=== PATIENT | male | born 1960 | race Asian ===

== ENCOUNTER 2017-07-14 07:22 | Emergency (ER) | payer OTHER, MEDICAID ==
[~2017-07-14] VITALS: Ht 121.9 cm; Wt 31.8 kg
[2017-07-14 07:25] VITALS: BP 163/88
[2017-07-14 10:54] VITALS: BP 114/69
== END 2017-07-14 10:54 | disposition home or self-care (01) ==
LOC: MED 07:22
DX: S01.01XA Laceration without foreign body of scalp, initial encounter (principal); W18.2XXA Fall in (into) shower or empty bathtub, initial encounter; Y93.F1 Activity, caregiving, bathing; Y92.091 Bathroom in other non-institutional residence as the place of occurrence of the external cause; Y99.8 Other external cause status

== ENCOUNTER 2019-07-08 14:56 | Emergency (ER) | payer OTHER, MEDICAID ==
[~2019-07-08] VITALS: Ht 274.3 cm; Wt 34.0 kg
[2019-07-08 15:00] VITALS: BP 143/76
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
[2019-07-08] MEDS ORDERED: ONDANSETRON 4 MG ODT PO ONE (15:40)
[2019-07-08] MEDS ORDERED: MORPHINE SULFATE 4 MG/ML SYR IM ONE (15:40)
[2019-07-08] MEDS ORDERED: ceFAZolin 1,000 MG VIAL ONE (16:40)
--- NOTE | 2019-07-08 16:45 | NUR ---
APPROX 0.5CM LACERATION NOTED ON R UPPER ARM, BLEEDING CONTROLLED WITH XEROFORM GAUZE AND NONADHERENT DRESSING. R POSTERIOR LONGARM SPLINT PLACED BY EMT, +2 RADIAL PULSE, <3S CAP REFILL.
[2019-07-08 16:50] LABS: BASOPHILS # (AUTO) 0.1 K/uL (0.00-0.22); BASOPHILS % (AUTO) 0.5 % (0.0-2.0); HEMATOCRIT 42.2 % (36-52); HEMOGLOBIN 14.2 g/dL (12.0-18.0); LYMPHOCYTES # (AUTO) 0.5 K/uL (2.0-11.5); LYMPHOCYTES % (AUTO) 2.4 % (20.5-51.1); MEAN CORPUSCULAR HEMOGLOBIN 30 pg (27-31); MEAN CORPUSCULAR HGB CONC 34 g/dL (33-37); MEAN CORPUSCULAR VOLUME 89.4 fL (80-94); MONOCYTES # (AUTO) 1.5 K/uL (0.8-1.0); MONOCYTES % (AUTO) 7.8 % (1.7-9.3); NEUTROPHILS # (AUTO) 17.2 K/uL (1.8-7.7); NEUTROPHILS % (AUTO) 89.3 % (42.2-75.2); PLATELET COUNT (AUTO) 236 K/uL (140-450); RED BLOOD CELL COUNT(AUTO) 4.72 MIL/uL (4.20-6.10); RED CELL DISTRIBUTION WIDTH 13.6 % (11.6-13.7); WHITE BLOOD COUNT (AUTO) 19.2 K/uL (4.8-10.8)
[2019-07-08 18:11] LABS: ALBUMIN 3.7 g/dL (3.4-5.0); ANION GAP 14.4 (8-16); CARBON DIOXIDE 26.6 mmol/L (21-32); CREATININE 1.4 mg/dL (0.7-1.3); TOTAL BILIRUBIN 0.4 mg/dL (0.0-1.0)
--- NOTE | 2019-07-08 18:16 | NUR ---
PT LAYING IN BED, CAREGIVER AT BEDSIDE, VSS, RR EVEN AND UNLABORED. ALL NEEDS MET.
--- NOTE | 2019-07-08 18:29 | NUR ---
Patient to be transferred to [facility], room 497A. Is being transferred due to higher level of care. Receiving facility has accepting physician and available space. ER physician has signed transfer form. Patient or responsible green party has agreed to transfer and signed form. Patient belongings inventoried and will be sent with patient. Copy of nursing notes, lab reports, EKG, Physicians Orders and X-rays to be sent with patient. Report called to Anisa PRESCOTT at receiving facility. [facility] ambulance service has been called for transfer. ETA is 1845.
[2019-07-08 18:55] VITALS: BP 132/71
--- NOTE | 2019-07-08 18:55 | NUR ---
[facility] TRANSPORT AT BEDSIDE. PT TO BE TRANSFERRED TO [facility] ROOM 497A. CONDITION STABLE, RR EVEN AND UNLABORED.
== END 2019-07-08 18:55 | disposition short-term general hospital (02) ==
LOC: MED 14:56
DX: S42.401B Unspecified fracture of lower end of right humerus, initial encounter for open fracture (principal); G93.89 Other specified disorders of brain; W23.0XXA Caught, crushed, jammed, or pinched between moving objects, initial encounter; Y93.89 Activity, other specified; Y92.811 Bus as the place of occurrence of the external cause; Y99.8 Other external cause status
CPT/HCPCS: 29105; 36415; 70450; 73060; 73080; 73090; 80053; 85025; 96365; 96366; 96372; 99285; J0690; J2270; Q0092; Q0162

== ENCOUNTER 2020-07-02 17:17 | Inpatient (IN) | payer OTHER, MEDICAID, SELFPAY ==
[~2020-07-02] VITALS: Ht 132.1 cm; Wt 36.3 kg
[2020-07-02 17:17] VITALS: BP 58/32
[2020-07-02] MEDS ORDERED: NACL 0.9% 1,000 ML IV ONE ×2 (17:42→19:45)
[2020-07-02] MEDS ORDERED: MAGN400S60 GT (18:00)
[2020-07-02] MEDS ORDERED: OMEP20CA19 GT (18:00)
[2020-07-02] MEDS ORDERED: ACET-2619 GT (18:00)
[2020-07-02] MEDS ORDERED: SIMV40TA1 PO (18:00)
[2020-07-02] MEDS ORDERED: FLONAS NS (18:00)
[2020-07-02] MEDS ORDERED: ROB GT (18:00)
[2020-07-02] MEDS ORDERED: DIPH25TA53 GT (18:00)
[2020-07-02] MEDS ORDERED: TAMS0.4C96 GT (18:00)
[2020-07-02] MEDS ORDERED: MULT-2112 GT (18:00)
[2020-07-02 19:15] LABS: APPEARANCE,URINE CLEAR (CLEAR); BILIRUBIN,URINE NEGATIVE (NEGATIVE); BLOOD, URINE NEGATIVE (NEGATIVE); COLOR,URINE YELLOW (YELLOW); LEUKOCYTE ESTERASE ,URINE TRACE (NEGATIVE); NITRITE, URINE NEGATIVE (NEGATIVE); UGLUCOSE NEGATIVE (NEGATIVE)
[2020-07-02 19:23] LABS: PROTHROMBIN TIME 15.5 secs (10.8-13.4)
[2020-07-02 19:28] LABS: RBC,URINE 0-5 /HPF (0-5)
[2020-07-02 19:37] LABS: ALBUMIN 1.6 g/dL (3.4-5.0); ANION GAP 20.1 (8-16); CARBON DIOXIDE 16.2 mmol/L (21-32); CREATININE 2.1 mg/dL (0.6-1.3); POTASSIUM 4.3 mmol/L (3.5-5.1); TOTAL BILIRUBIN 0.1 mg/dL (0.0-1.0)
[2020-07-02] MEDS ORDERED: cefTRIAXone 1,000 MG VIAL ONE (19:49)
[2020-07-02] MEDS ORDERED: ASPIRIN 325 MG TAB GT ONE (19:50)
[2020-07-02 19:58] LABS: MEAN CORPUSCULAR HGB CONC 29 g/dL (33-37)
[2020-07-02 20:03] LABS: MEAN CORPUSCULAR HEMOGLOBIN 24 pg (27-31); MEAN CORPUSCULAR VOLUME 83.3 fL (80-94); PLATELET COUNT (AUTO) 233 K/uL (140-450); RED CELL DISTRIBUTION WIDTH 17.2 % (11.6-13.7)
[2020-07-02 20:08] LABS: HEMOGLOBIN 4.6 g/dL (12.0-18.0); WHITE BLOOD COUNT (AUTO) 28.9 K/uL (4.8-10.8)
[2020-07-02 20:09] LABS: HEMATOCRIT 15.8 % (36-52)
[2020-07-02 20:36] LABS: LYMPHOCYTES % (MANUAL) 5 % (20-46)
[2020-07-02] MEDS ORDERED: POTASSIUM CHLORIDE 10 MEQ TABER PO PRN (21:05)
[2020-07-02] MEDS ORDERED: DOCUSATE SODIUM 100 MG GELCAP PO PRN (21:05)
[2020-07-02] MEDS ORDERED: ACETAMINOPHEN 325 MG TAB PO PRN (21:05)
[2020-07-02] MEDS ORDERED: HYDROcodone/APAP 7.5/325 MG 1 TAB PO PRN (21:05)
[2020-07-02] MEDS ORDERED: ONDANSETRON 4 MG/2 ML VIAL IM/IVP PRN (21:05)
[2020-07-02 22:02] LABS: CHOL/HDL RATIO 2.9 (1-4.5); FREE T4 (FREE THYROXINE) 1.02 ng/dL (0.76-1.46); MAGNESIUM 2.3 mg/dL (1.8-2.4); PHOSPHORUS 2.4 mg/dL (2.5-4.9); THYROID STIMULATING HORMONE 0.42 uIU/mL (0.34-3.74)
[2020-07-03 00:55] VITALS: BP 96/53
[2020-07-03 04:00] VITALS: BP 124/76
[2020-07-03] MEDS: NACL 0.9% 1,000 ML IV SCH ×2 (04:34→06:00)
[2020-07-03] MEDS ORDERED: PANTOPRAZOLE 40 MG INJ VIAL ONE (04:55)
[2020-07-03] MEDS: PANTOPRAZOLE 80 MG in NACL 0.9% 100 ML IV SCH ×3 (05:07→17:49)
[2020-07-03 06:53] LABS: HEMATOCRIT 34.7 % (36-52); HEMOGLOBIN 11.4 g/dL (12.0-18.0); MEAN CORPUSCULAR HEMOGLOBIN 28 pg (27-31); MEAN CORPUSCULAR HGB CONC 33 g/dL (33-37); MEAN CORPUSCULAR VOLUME 85.7 fL (80-94); PLATELET COUNT (AUTO) 142 K/uL (140-450); RED BLOOD CELL COUNT(AUTO) 4.05 MIL/uL (4.20-6.10); RED CELL DISTRIBUTION WIDTH 17.7 % (11.6-13.7)
[2020-07-03 06:59] LABS: ANION GAP 17.3 (8-16); CARBON DIOXIDE 18.4 mmol/L (21-32); CREATININE 1.9 mg/dL (0.6-1.3); POTASSIUM 4.7 mmol/L (3.5-5.1)
[2020-07-03 07:04] LABS: MAGNESIUM 2.2 mg/dL (1.8-2.4); PHOSPHORUS 2.3 mg/dL (2.5-4.9)
[2020-07-03 08:00] VITALS: BP 131/80
[2020-07-03 08:00] LABS: WHITE BLOOD COUNT (AUTO) 25.4 K/uL (4.8-10.8)
[2020-07-03 08:01] LABS: LYMPHOCYTES % (MANUAL) 4 % (20-46); MONOCYTES % (MANUAL) 13 % (5-12)
[2020-07-03 12:00] VITALS: BP 131/77
[2020-07-03] MEDS ORDERED: MAGNESIUM CITRATE 300 ML BTL PO ONE (12:45)
[2020-07-03] MEDS ORDERED: BOWEL EVACUANT DRINK 4,000 ML PDS PO SCH (13:11)
[2020-07-03] MEDS ORDERED: POTASSIUM CHLORIDE 10 MEQ TABER PO PRN (13:14)
[2020-07-03 13:16] LABS: BASOPHILS # (AUTO) 0.1 K/uL (0.00-0.22); BASOPHILS % (AUTO) 0.4 % (0.0-2.0); EOSINOPHILS # (AUTO) 0.1 K/uL (0-0.4); EOSINOPHILS % (AUTO) 0.5 % (0.0-4.0); HEMATOCRIT 32.8 % (36-52); HEMOGLOBIN 10.6 g/dL (12.0-18.0); LYMPHOCYTES # (AUTO) 1.3 K/uL (2.0-11.5); LYMPHOCYTES % (AUTO) 5.3 % (20.5-51.1); MEAN CORPUSCULAR HEMOGLOBIN 29 pg (27-31); MEAN CORPUSCULAR HGB CONC 32 g/dL (33-37); MEAN CORPUSCULAR VOLUME 87.9 fL (80-94); MONOCYTES # (AUTO) 2.8 K/uL (0.8-1.0); MONOCYTES % (AUTO) 11.2 % (1.7-9.3); NEUTROPHILS # (AUTO) 20.8 K/uL (1.8-7.7); NEUTROPHILS % (AUTO) 82.6 % (42.2-75.2); PLATELET COUNT (AUTO) 78 K/uL (140-450); RED BLOOD CELL COUNT(AUTO) 3.73 MIL/uL (4.20-6.10); RED CELL DISTRIBUTION WIDTH 17.5 % (11.6-13.7)
[2020-07-03 13:25] LABS: WHITE BLOOD COUNT (AUTO) 25.2 K/uL (4.8-10.8)
[2020-07-03] MEDS: SENNA 8.6 MG TAB PO SCH ×3 (14:53→20:51)
[2020-07-03] MEDS: LACTULOSE 20 GM/30 ML UDC PO SCH ×3 (14:53→20:50)
[2020-07-03 16:00] VITALS: BP 120/72
[2020-07-03] MEDS ORDERED: MAGNESIUM CITRATE 300 ML BTL PO SCH (17:07)
[2020-07-03] MEDS: POTASSIUM CHL 10 MEQ/D5-1/2NS 1,000 ML IV SCH ×2 (17:33→22:27)
[2020-07-03] MEDS: METOCLOPRAMIDE 10 MG/2 ML INJ VIAL IVP SCH (17:58)
[2020-07-03] MEDS: PIPERACILLIN/TAZOBACTAM 2.25 GM in DEXTROSE 5% 50 ML IV SCH ×2 (18:58→23:39)
[2020-07-03 20:00] VITALS: BP 138/76
[2020-07-04] VITALS: BP 127/77
[2020-07-04] MEDS: METOCLOPRAMIDE 10 MG/2 ML INJ VIAL IVP SCH ×3 (00:01→11:45)
[2020-07-04] MEDS ORDERED: PANTOPRAZOLE 40 MG INJ VIAL ONE (03:54)
[2020-07-04 04:00] VITALS: BP 145/83
[2020-07-04] MEDS: PANTOPRAZOLE 80 MG in NACL 0.9% 100 ML IV SCH (04:04)
[2020-07-04] MEDS: POTASSIUM CHL 10 MEQ/D5-1/2NS 1,000 ML IV SCH (04:49)
[2020-07-04] MEDS: PIPERACILLIN/TAZOBACTAM 2.25 GM in DEXTROSE 5% 50 ML IV SCH ×3 (05:20→18:00)
[2020-07-04 07:28] LABS: BASOPHILS % (AUTO) 0.1 % (0.0-2.0); HEMATOCRIT 23.5 % (36-52); HEMOGLOBIN 7.6 g/dL (12.0-18.0); LYMPHOCYTES % (AUTO) 4.9 % (20.5-51.1); MEAN CORPUSCULAR HEMOGLOBIN 28 pg (27-31); MEAN CORPUSCULAR HGB CONC 32 g/dL (33-37); MEAN CORPUSCULAR VOLUME 87.2 fL (80-94); MONOCYTES # (AUTO) 2.2 K/uL (0.8-1.0); MONOCYTES % (AUTO) 11.1 % (1.7-9.3); NEUTROPHILS # (AUTO) 16.9 K/uL (1.8-7.7); NEUTROPHILS % (AUTO) 83.9 % (42.2-75.2); PLATELET COUNT (AUTO) 93 K/uL (140-450); RED BLOOD CELL COUNT(AUTO) 2.69 MIL/uL (4.20-6.10); RED CELL DISTRIBUTION WIDTH 17.4 % (11.6-13.7); WHITE BLOOD COUNT (AUTO) 20.1 K/uL (4.8-10.8)
[2020-07-04 07:32] LABS: ANION GAP 18.5 (8-16); CARBON DIOXIDE 17.6 mmol/L (21-32); POTASSIUM 3.1 mmol/L (3.5-5.1)
[2020-07-04 07:33] LABS: MAGNESIUM 2.8 mg/dL (1.8-2.4); PHOSPHORUS 3.1 mg/dL (2.5-4.9)
[2020-07-04 08:00] VITALS: BP 135/48
[2020-07-04] MEDS ORDERED: MAGNESIUM CITRATE 300 ML BTL PO SCH (08:00)
[2020-07-04] MEDS ORDERED: BOWEL EVACUANT DRINK 4,000 ML PDS PO SCH (08:00)
[2020-07-04] MEDS: SENNA 8.6 MG TAB PO SCH (08:21)
[2020-07-04] MEDS: LACTULOSE 20 GM/30 ML UDC PO SCH (08:21)
[2020-07-04 09:06] LABS: FOLIC ACID 14.9 ng/mL (>3.0); T4 (THYROXINE) 4.8 ug/dL (4.5-12.0)
[2020-07-04 12:00] VITALS: BP 137/72
[2020-07-04] MEDS ORDERED: POTASSIUM CHLORIDE 20% 40 MEQ/15 ML UDC GT SCH (13:00)
[2020-07-04] MEDS: POTASSIUM CHL 20 MEQ / DEXT 5% 1,000 ML IV SCH ×2 (13:03→22:45)
[2020-07-04] MEDS ORDERED: MIDAZOLAM 2 MG/2 ML VIAL ONE (14:30)
[2020-07-04] MEDS ORDERED: fentaNYL citrate 0.05 MG/ML VIAL ONE (14:30)
[2020-07-04 16:00] VITALS: BP 133/69
[2020-07-04] MEDS ORDERED: MIDAZOLAM 2 MG/2 ML VIAL IVP ONE ×2 (18:25→18:30)
[2020-07-04] MEDS ORDERED: fentaNYL citrate 0.05 MG/ML VIAL IVP ONE ×2 (18:25→18:30)
[2020-07-04 20:00] VITALS: BP 126/57
[2020-07-04] MEDS: FERROUS SULFATE 300 MG/5 ML UDC GT SCH (21:09)
[2020-07-04] MEDS: PANTOPRAZOLE 40 MG INJ VIAL IVP SCH (22:30)
[2020-07-05] VITALS: BP 127/59
[2020-07-05] MEDS: PIPERACILLIN/TAZOBACTAM 2.25 GM in DEXTROSE 5% 50 ML IV SCH ×5 (00:56→23:31)
[2020-07-05] MEDS: POTASSIUM CHL 20 MEQ / DEXT 5% 1,000 ML IV SCH (01:06)
[2020-07-05 04:00] VITALS: BP 129/50
[2020-07-05 06:16] LABS: BASOPHILS % (AUTO) 0.1 % (0.0-2.0); EOSINOPHILS % (AUTO) 0.2 % (0.0-4.0); HEMATOCRIT 21.6 % (36-52); LYMPHOCYTES # (AUTO) 1.3 K/uL (2.0-11.5); LYMPHOCYTES % (AUTO) 7.9 % (20.5-51.1); MEAN CORPUSCULAR HEMOGLOBIN 28 pg (27-31); MEAN CORPUSCULAR HGB CONC 32 g/dL (33-37); MEAN CORPUSCULAR VOLUME 88.9 fL (80-94); MONOCYTES # (AUTO) 2.1 K/uL (0.8-1.0); MONOCYTES % (AUTO) 12.9 % (1.7-9.3); NEUTROPHILS # (AUTO) 12.8 K/uL (1.8-7.7); NEUTROPHILS % (AUTO) 78.9 % (42.2-75.2); PLATELET COUNT (AUTO) 99 K/uL (140-450); RED BLOOD CELL COUNT(AUTO) 2.43 MIL/uL (4.20-6.10); RED CELL DISTRIBUTION WIDTH 17.7 % (11.6-13.7); WHITE BLOOD COUNT (AUTO) 16.2 K/uL (4.8-10.8)
[2020-07-05 06:26] LABS: ANION GAP 14.6 (8-16); CARBON DIOXIDE 18.5 mmol/L (21-32); CREATININE 1.7 mg/dL (0.6-1.3); POTASSIUM 3.1 mmol/L (3.5-5.1)
[2020-07-05 06:41] LABS: MAGNESIUM 2.5 mg/dL (1.8-2.4); PHOSPHORUS 2.4 mg/dL (2.5-4.9)
[2020-07-05 08:00] VITALS: BP 96/46
[2020-07-05 08:03] LABS: HEMOGLOBIN 6.9 g/dL (12.0-18.0)
[2020-07-05] MEDS: FERROUS SULFATE 300 MG/5 ML UDC GT SCH ×2 (08:25→20:41)
[2020-07-05] MEDS: PANTOPRAZOLE 40 MG INJ VIAL IVP SCH (08:25)
[2020-07-05] MEDS ORDERED: LACTULOSE 20 GM/30 ML UDC PO SCH (09:00)
[2020-07-05] MEDS ORDERED: POTASSIUM CHLORIDE 20% 40 MEQ/15 ML UDC GT SCH (09:00)
[2020-07-05] MEDS ORDERED: POTASSIUM CHLORIDE 40 MEQ, LIDOCAINE MPF 1% 25 MG in NACL 0.9% 250 ML IV SCH (10:00)
[2020-07-05 12:00] VITALS: BP 142/68
[2020-07-05 15:10] LABS: BASOPHILS % (AUTO) 0.1 % (0.0-2.0); EOSINOPHILS # (AUTO) 0.1 K/uL (0-0.4); EOSINOPHILS % (AUTO) 0.5 % (0.0-4.0); HEMATOCRIT 30.7 % (36-52); HEMOGLOBIN 9.9 g/dL (12.0-18.0); LYMPHOCYTES # (AUTO) 1.3 K/uL (2.0-11.5); LYMPHOCYTES % (AUTO) 8.6 % (20.5-51.1); MEAN CORPUSCULAR HEMOGLOBIN 29 pg (27-31); MEAN CORPUSCULAR HGB CONC 32 g/dL (33-37); MEAN CORPUSCULAR VOLUME 90.4 fL (80-94); MONOCYTES # (AUTO) 1.7 K/uL (0.8-1.0); MONOCYTES % (AUTO) 11.1 % (1.7-9.3); NEUTROPHILS # (AUTO) 11.9 K/uL (1.8-7.7); NEUTROPHILS % (AUTO) 79.7 % (42.2-75.2); PLATELET COUNT (AUTO) 94 K/uL (140-450); RED CELL DISTRIBUTION WIDTH 16.5 % (11.6-13.7)
[2020-07-05 16:00] VITALS: BP 135/50
[2020-07-05] MEDS: LANSOPRAZOLE 30 MG CAPDR GT SCH (16:10)
[2020-07-05 20:00] VITALS: BP 143/77
[2020-07-06] VITALS: BP 143/72
[2020-07-06 04:00] VITALS: BP 126/67
[2020-07-06] MEDS: PIPERACILLIN/TAZOBACTAM 2.25 GM in DEXTROSE 5% 50 ML IV SCH ×3 (05:10→16:59)
[2020-07-06 06:15] LABS: BASOPHILS % (AUTO) 0.1 % (0.0-2.0); EOSINOPHILS # (AUTO) 0.3 K/uL (0-0.4); EOSINOPHILS % (AUTO) 2.3 % (0.0-4.0); HEMATOCRIT 29.6 % (36-52); HEMOGLOBIN 9.7 g/dL (12.0-18.0); LYMPHOCYTES # (AUTO) 1.1 K/uL (2.0-11.5); LYMPHOCYTES % (AUTO) 8.4 % (20.5-51.1); MEAN CORPUSCULAR HEMOGLOBIN 30 pg (27-31); MEAN CORPUSCULAR HGB CONC 33 g/dL (33-37); MEAN CORPUSCULAR VOLUME 90.1 fL (80-94); MONOCYTES # (AUTO) 1.6 K/uL (0.8-1.0); MONOCYTES % (AUTO) 12.5 % (1.7-9.3); NEUTROPHILS # (AUTO) 9.9 K/uL (1.8-7.7); NEUTROPHILS % (AUTO) 76.7 % (42.2-75.2); PLATELET COUNT (AUTO) 89 K/uL (140-450); RED BLOOD CELL COUNT(AUTO) 3.29 MIL/uL (4.20-6.10); RED CELL DISTRIBUTION WIDTH 16.8 % (11.6-13.7); WHITE BLOOD COUNT (AUTO) 12.9 K/uL (4.8-10.8)
[2020-07-06] MEDS: LANSOPRAZOLE 30 MG CAPDR GT SCH ×2 (06:33→16:56)
[2020-07-06 06:44] LABS: ANION GAP 12.1 (8-16); CARBON DIOXIDE 19.5 mmol/L (21-32); CREATININE 1.6 mg/dL (0.6-1.3); POTASSIUM 3.6 mmol/L (3.5-5.1)
[2020-07-06 06:50] LABS: MAGNESIUM 2.2 mg/dL (1.8-2.4)
[2020-07-06 08:00] VITALS: BP 127/70
[2020-07-06] MEDS ORDERED: POTASSIUM CHLORIDE 20% 40 MEQ/15 ML UDC GT SCH (09:00)
[2020-07-06] MEDS: FERROUS SULFATE 300 MG/5 ML UDC GT SCH ×2 (09:02→21:29)
[2020-07-06] MEDS: LACTULOSE 20 GM/30 ML UDC GT SCH (09:02)
[2020-07-06 12:00] VITALS: BP 140/71
[2020-07-06 16:00] VITALS: BP 138/71
[2020-07-07] VITALS: BP 142/75
[2020-07-07] MEDS: PIPERACILLIN/TAZOBACTAM 2.25 GM in DEXTROSE 5% 50 ML IV SCH ×4 (00:10→17:36)
[2020-07-07] MEDS: HYDRAGUARD CREAM TP SCH ×2 (01:00→12:42)
[2020-07-07 06:32] LABS: BASOPHILS % (AUTO) 0.3 % (0.0-2.0); EOSINOPHILS # (AUTO) 0.5 K/uL (0-0.4); EOSINOPHILS % (AUTO) 3.1 % (0.0-4.0); HEMATOCRIT 28.9 % (36-52); HEMOGLOBIN 9.4 g/dL (12.0-18.0); LYMPHOCYTES # (AUTO) 0.9 K/uL (2.0-11.5); LYMPHOCYTES % (AUTO) 6.1 % (20.5-51.1); MEAN CORPUSCULAR HEMOGLOBIN 29 pg (27-31); MEAN CORPUSCULAR HGB CONC 33 g/dL (33-37); MEAN CORPUSCULAR VOLUME 90.4 fL (80-94); MONOCYTES # (AUTO) 1.7 K/uL (0.8-1.0); MONOCYTES % (AUTO) 11.7 % (1.7-9.3); NEUTROPHILS # (AUTO) 11.5 K/uL (1.8-7.7); NEUTROPHILS % (AUTO) 78.8 % (42.2-75.2); PLATELET COUNT (AUTO) 106 K/uL (140-450); RED BLOOD CELL COUNT(AUTO) 3.19 MIL/uL (4.20-6.10); WHITE BLOOD COUNT (AUTO) 14.6 K/uL (4.8-10.8)
[2020-07-07] MEDS: LANSOPRAZOLE 30 MG CAPDR GT SCH ×2 (06:45→17:36)
[2020-07-07 07:06] LABS: ANION GAP 15.7 (8-16); CARBON DIOXIDE 19.1 mmol/L (21-32); CREATININE 1.5 mg/dL (0.6-1.3); POTASSIUM 3.8 mmol/L (3.5-5.1)
[2020-07-07 07:08] LABS: MAGNESIUM 2.1 mg/dL (1.8-2.4); PHOSPHORUS 4.1 mg/dL (2.5-4.9)
[2020-07-07 07:54] VITALS: BP 123/71
[2020-07-07] MEDS: LACTULOSE 20 GM/30 ML UDC GT SCH (09:00)
[2020-07-07] MEDS: POTASSIUM CHLORIDE 20% 40 MEQ/15 ML UDC GT SCH (09:48)
[2020-07-07] MEDS: FERROUS SULFATE 300 MG/5 ML UDC GT SCH ×2 (09:48→21:47)
[2020-07-07 16:00] VITALS: BP 110/57
[2020-07-08] VITALS: BP 113/62
[2020-07-08] MEDS: PIPERACILLIN/TAZOBACTAM 2.25 GM in DEXTROSE 5% 50 ML IV SCH ×4 (00:08→17:20)
[2020-07-08] MEDS: HYDRAGUARD CREAM TP SCH ×2 (01:51→12:34)
[2020-07-08] MEDS: LANSOPRAZOLE 30 MG CAPDR GT SCH ×2 (06:53→17:15)
[2020-07-08 08:00] VITALS: BP 117/99
[2020-07-08] MEDS: FERROUS SULFATE 300 MG/5 ML UDC GT SCH ×2 (08:35→21:00)
[2020-07-08] MEDS: LACTULOSE 20 GM/30 ML UDC GT SCH (08:35)
[2020-07-08] MEDS: POTASSIUM CHLORIDE 20% 40 MEQ/15 ML UDC GT SCH (08:35)
[2020-07-08 10:40] LABS: BASOPHILS # (AUTO) 0.1 K/uL (0.00-0.22); BASOPHILS % (AUTO) 0.2 % (0.0-2.0); EOSINOPHILS # (AUTO) 0.8 K/uL (0-0.4); EOSINOPHILS % (AUTO) 3.3 % (0.0-4.0); HEMATOCRIT 37.2 % (36-52); HEMOGLOBIN 11.6 g/dL (12.0-18.0); LYMPHOCYTES # (AUTO) 1.1 K/uL (2.0-11.5); MEAN CORPUSCULAR HEMOGLOBIN 28 pg (27-31); MEAN CORPUSCULAR HGB CONC 31 g/dL (33-37); MONOCYTES # (AUTO) 2.5 K/uL (0.8-1.0); NEUTROPHILS # (AUTO) 21.1 K/uL (1.8-7.7); PLATELET COUNT (AUTO) 166 K/uL (140-450); RED BLOOD CELL COUNT(AUTO) 4.09 MIL/uL (4.20-6.10); RED CELL DISTRIBUTION WIDTH 17.6 % (11.6-13.7)
[2020-07-08 10:53] LABS: CARBON DIOXIDE 22.6 mmol/L (21-32); CREATININE 1.5 mg/dL (0.6-1.3); POTASSIUM 5.6 mmol/L (3.5-5.1)
[2020-07-08 11:15] LABS: WHITE BLOOD COUNT (AUTO) 25.6 K/uL (4.8-10.8)
[2020-07-08 11:33] LABS: NEUTROPHILS % (AUTO) 82.4 % (42.2-75.2)
[2020-07-08 11:34] LABS: LYMPHOCYTES % (AUTO) 4.2 % (20.5-51.1); MONOCYTES % (AUTO) 9.9 % (1.7-9.3)
[2020-07-08] MEDS ORDERED: SODIUM ZIRCONIUM CYCLOSILICATE 10 GM POWD.PACK PO SCH (13:00)
[2020-07-08 16:00] VITALS: BP 96/56
[2020-07-08 18:54] LABS: ANION GAP 13.6 (8-16); CARBON DIOXIDE 23.9 mmol/L (21-32); CREATININE 1.5 mg/dL (0.6-1.3); POTASSIUM 4.5 mmol/L (3.5-5.1)
[2020-07-09] VITALS: BP 116/51
[2020-07-09] MEDS: PIPERACILLIN/TAZOBACTAM 2.25 GM in DEXTROSE 5% 50 ML IV SCH ×5 (01:00→23:45)
[2020-07-09] MEDS: HYDRAGUARD CREAM TP SCH ×2 (01:00→13:15)
[2020-07-09] MEDS: LANSOPRAZOLE 30 MG CAPDR GT SCH ×2 (06:21→17:08)
[2020-07-09] MEDS ORDERED: PIPERACILLIN/TAZOBACTAM 2.25 GM VIAL IV ONE (06:46)
[2020-07-09 08:00] VITALS: BP 135/72
[2020-07-09] MEDS: FLUCONAZOLE 100 MG TAB GT SCH (09:30)
[2020-07-09] MEDS: LACTULOSE 20 GM/30 ML UDC GT SCH (09:30)
[2020-07-09] MEDS: FERROUS SULFATE 300 MG/5 ML UDC GT SCH ×2 (09:31→20:08)
[2020-07-09 09:38] LABS: BASOPHILS % (AUTO) 0.2 % (0.0-2.0); EOSINOPHILS # (AUTO) 1.1 K/uL (0-0.4); EOSINOPHILS % (AUTO) 6.8 % (0.0-4.0); HEMOGLOBIN 10.4 g/dL (12.0-18.0); LYMPHOCYTES # (AUTO) 1.1 K/uL (2.0-11.5); LYMPHOCYTES % (AUTO) 6.7 % (20.5-51.1); MEAN CORPUSCULAR HEMOGLOBIN 29 pg (27-31); MEAN CORPUSCULAR HGB CONC 32 g/dL (33-37); MONOCYTES # (AUTO) 1.6 K/uL (0.8-1.0); MONOCYTES % (AUTO) 9.6 % (1.7-9.3); NEUTROPHILS # (AUTO) 12.7 K/uL (1.8-7.7); NEUTROPHILS % (AUTO) 76.7 % (42.2-75.2); PLATELET COUNT (AUTO) 235 K/uL (140-450); RED BLOOD CELL COUNT(AUTO) 3.55 MIL/uL (4.20-6.10); RED CELL DISTRIBUTION WIDTH 17.3 % (11.6-13.7); WHITE BLOOD COUNT (AUTO) 16.5 K/uL (4.8-10.8)
[2020-07-09 09:46] LABS: ANION GAP 13.5 (8-16); CARBON DIOXIDE 26.1 mmol/L (21-32); CREATININE 1.6 mg/dL (0.6-1.3); POTASSIUM 4.6 mmol/L (3.5-5.1)
[2020-07-09 16:00] VITALS: BP 120/61
[2020-07-10 00:20] VITALS: BP 125/69
[2020-07-10] MEDS: HYDRAGUARD CREAM TP SCH ×2 (01:36→13:00)
[2020-07-10] MEDS: PIPERACILLIN/TAZOBACTAM 2.25 GM in DEXTROSE 5% 50 ML IV SCH ×2 (05:01→11:59)
[2020-07-10] MEDS: LANSOPRAZOLE 30 MG CAPDR GT SCH (06:49)
[2020-07-10 08:00] VITALS: BP 120/52
[2020-07-10] MEDS: FERROUS SULFATE 300 MG/5 ML UDC GT SCH (09:53)
[2020-07-10] MEDS: FLUCONAZOLE 100 MG TAB GT SCH (09:53)
[2020-07-10] MEDS: LACTULOSE 20 GM/30 ML UDC GT SCH (09:53)
[2020-07-10 10:32] LABS: BASOPHILS % (AUTO) 0.3 % (0.0-2.0); EOSINOPHILS % (AUTO) 7.4 % (0.0-4.0); HEMATOCRIT 27.3 % (36-52); HEMOGLOBIN 8.8 g/dL (12.0-18.0); MEAN CORPUSCULAR HEMOGLOBIN 29 pg (27-31); MEAN CORPUSCULAR HGB CONC 32 g/dL (33-37); MEAN CORPUSCULAR VOLUME 88.6 fL (80-94); MONOCYTES # (AUTO) 1.5 K/uL (0.8-1.0); MONOCYTES % (AUTO) 10.9 % (1.7-9.3); NEUTROPHILS # (AUTO) 10.3 K/uL (1.8-7.7); NEUTROPHILS % (AUTO) 74.4 % (42.2-75.2); PLATELET COUNT (AUTO) 233 K/uL (140-450); RED BLOOD CELL COUNT(AUTO) 3.08 MIL/uL (4.20-6.10); WHITE BLOOD COUNT (AUTO) 13.8 K/uL (4.8-10.8)
[2020-07-10 10:41] LABS: ANION GAP 11.9 (8-16); CARBON DIOXIDE 22.6 mmol/L (21-32); CREATININE 1.6 mg/dL (0.6-1.3); POTASSIUM 4.5 mmol/L (3.5-5.1)
[2020-07-10] MEDS ORDERED: ASCO500T95 PO (11:51)
[2020-07-10] MEDS ORDERED: LEVO750T2 PO (11:51)
[2020-07-10] MEDS ORDERED: LANS30EC68 GT (11:51)
[2020-07-10] MEDS ORDERED: FER300L GT (11:51)
== END 2020-07-10 16:29 | disposition home or self-care (01) | DRG 871 ==
LOC: MED 17:17 → MTU 20:17
PROVIDERS: ADMIT Emergency Medicine; ATTEND Emergency Medicine
PROC: 05HY33Z Insertion of Infusion Device into Upper Vein, Percutaneous Approach (ICD-10-PCS; 2020-07-03)
PROC: B54NZZA Ultrasonography of Left Upper Extremity Veins, Guidance (ICD-10-PCS; 2020-07-03)
PROC: 30233N1 Transfusion of Nonautologous Red Blood Cells into Peripheral Vein, Percutaneous Approach (ICD-10-PCS; 2020-07-03)
PROC: 0DHA3UZ Insertion of Feeding Device into Jejunum, Percutaneous Approach (ICD-10-PCS; 2020-07-04)
PROC: 0DJD8ZZ Inspection of Lower Intestinal Tract, Via Natural or Artificial Opening Endoscopic (ICD-10-PCS; 2020-07-04)
PROC: 0DB38ZX Excision of Lower Esophagus, Via Natural or Artificial Opening Endoscopic, Diagnostic (ICD-10-PCS; principal; 2020-07-04 14:30)
PROC: 0DB68ZX Excision of Stomach, Via Natural or Artificial Opening Endoscopic, Diagnostic (ICD-10-PCS; 2020-07-04 14:30)
DX: A41.9 Sepsis, unspecified organism (principal); N17.0 Acute kidney failure with tubular necrosis; R57.1 Hypovolemic shock; E43 Unspecified severe protein-calorie malnutrition; G80.0 Spastic quadriplegic cerebral palsy; K22.11 Ulcer of esophagus with bleeding; R65.21 Severe sepsis with septic shock; N39.0 Urinary tract infection, site not specified; I24.8 Other forms of acute ischemic heart disease; E87.0 Hyperosmolality and hypernatremia; Z68.20 Body mass index [BMI] 20.0-20.9, adult; D50.0 Iron deficiency anemia secondary to blood loss (chronic); F79 Unspecified intellectual disabilities; G40.909 Epilepsy, unspecified, not intractable, without status epilepticus; Q02 Microcephaly; Z93.1 Gastrostomy status; Z20.828 Contact with and (suspected) exposure to other viral communicable diseases; Z79.899 Other long term (current) drug therapy; N40.0 Benign prostatic hyperplasia without lower urinary tract symptoms; E87.6 Hypokalemia; E78.5 Hyperlipidemia, unspecified; N18.3 Chronic kidney disease, stage 3 (moderate); R13.12 Dysphagia, oropharyngeal phase
CPT/HCPCS: 36415; 36430; 70450; 71045; 74018; 80048; 80053; 81001; 82272; 82607; 82728; 82746; 83036; 83540; 83605; 83690; 83735; 83880; 84100; 84436; 84439; 84443; 84479; 84484; 85025; 85045; 85610; 86677; 86886; 86900; 86901; 86920; 87040; 87070; 87081; 87086; 87186; 88305; 88312; 88313; 93005; 96361; 96365; 99291; C1758; C9113; J0696; J2001; J2250; J2405; J2543; J2765; J3010; J3480; J7030; J7060; J7070; P9016; Q0092

== ENCOUNTER 2020-08-26 18:21 | Inpatient (IN) | payer OTHER, MEDICAID, SELFPAY ==
[~2020-08-26] VITALS: Ht 121.9 cm; Wt 22.7 kg
[~2020-08-26 18:21] MED LIST: ACET-2619 GT; ASCO500T95 PO; DIPH25TA53 GT; FER300L GT; FLONAS NS; LANS30EC68 GT; LEVO750T2 PO; MAGN400S60 GT; MULT-2112 GT; OMEP20CA19 GT; ROB GT; SIMV40TA1 PO; TAMS0.4C96 GT
[2020-08-26 18:34] VITALS: BP 134/89
[2020-08-26] MEDS ORDERED: ONDANSETRON 4 MG/2 ML VIAL IVP ONE (18:40)
[2020-08-26] MEDS ORDERED: NACL 0.9% 500 ML IV ONE (18:40)
[2020-08-26] MEDS ORDERED: KETOROLAC 30 MG/ML VIAL IVP ONE (18:40)
--- NOTE | 2020-08-26 19:17 | NUR ---
LAB AT BEDSIDE
--- NOTE | 2020-08-26 19:24 | NUR ---
NATHAN SWAB COLLECTED AND GIVEN TO PROCESSING TALC AND BORATE SUPERVISOR.
--- NOTE | 2020-08-26 19:29 | NUR ---
PERSONAL CHEF, FORREST
--- NOTE | 2020-08-26 19:30 | NUR ---
60 Y/O M BIB [facility] C/O NAUSEA AND VOMITING DARK RED BLOOD X TODAY. PER EMS, PT VOMITED ONCE EN ROUTE. ADMINISTERED 4 MG ZOFRAN IVP EN ROUTE. IV ON LEFT HAND PLACED BY EMS. MHX: ASPIRATION PNA, CEREBRAL PALSY, RENAL FAILURE, CONGENITAL MICROCEPHALY, ACUTE GASTRITIS, UMBILICAL HERNIA NKA
--- NOTE | 2020-08-26 19:34 | NUR ---
PT TAKEN TO CT VIA RRADHA.
[2020-08-26 19:53] LABS: HEMATOCRIT 41.3 % (36-52); HEMOGLOBIN 13.4 g/dL (12.0-18.0); MEAN CORPUSCULAR HEMOGLOBIN 27 pg (27-31); MEAN CORPUSCULAR HGB CONC 33 g/dL (33-37); PLATELET COUNT (AUTO) 291 K/uL (140-450); RED BLOOD CELL COUNT(AUTO) 5.03 MIL/uL (4.20-6.10); RED CELL DISTRIBUTION WIDTH 16.3 % (11.6-13.7); WHITE BLOOD COUNT (AUTO) 18.9 K/uL (4.8-10.8)
[2020-08-26 20:01] LABS: PROTHROMBIN TIME 9.6 secs (10.8-13.4)
[2020-08-26 20:03] LABS: ALBUMIN 3.3 g/dL (3.4-5.0); ANION GAP 12.1 (8-16); CARBON DIOXIDE 31.2 mmol/L (21-32); CREATININE 1.4 mg/dL (0.6-1.3); POTASSIUM 4.3 mmol/L (3.5-5.1); TOTAL BILIRUBIN 0.2 mg/dL (0.0-1.0)
[2020-08-26 20:14] LABS: EOSINOPHILS % (MANUAL) 1 % (0-4); LYMPHOCYTES % (MANUAL) 1 % (20-46); MONOCYTES % (MANUAL) 2 % (5-12)
[2020-08-26] MEDS ORDERED: ZOLPIDEM 5 MG TAB PO PRN (20:45)
[2020-08-26] MEDS ORDERED: ONDANSETRON 4 MG/2 ML VIAL IM/IVP PRN (20:45)
[2020-08-26] MEDS ORDERED: POTASSIUM CHLORIDE 40 MEQ, LIDOCAINE MPF 1% 25 MG in NACL 0.9% 250 ML IV PRN (20:45)
[2020-08-26] MEDS ORDERED: ACETAMINOPHEN 325 MG TAB PO PRN (20:45)
[2020-08-26] MEDS ORDERED: DOCUSATE SODIUM 100 MG GELCAP PO PRN (20:45)
[2020-08-26] MEDS ORDERED: guaiFENesin DM 200/20 MG-10 ML 10 ML UDC PO PRN (20:45)
[2020-08-26] MEDS ORDERED: DEXT 5% /NACL 0.9% 1,000 ML IV ONE (20:45)
[2020-08-26] MEDS ORDERED: HYDROcodone/APAP 7.5/325 MG 1 TAB PO PRN (20:45)
--- NOTE | 2020-08-26 21:00 | NUR ---
STRAIGHT CATH ATTEMPTED, NO URINE OUTPUT.
[2020-08-26 21:11] LABS: CHOL/HDL RATIO 3.1 (1-4.5); FREE T4 (FREE THYROXINE) 1.17 ng/dL (0.76-1.46); MAGNESIUM 2.7 mg/dL (1.8-2.4); PHOSPHORUS 2.7 mg/dL (2.5-4.9); THYROID STIMULATING HORMONE 0.61 uIU/mL (0.34-3.74)
--- NOTE | 2020-08-26 21:15 | NUR ---
PLACED PEDS URINE BAG.
--- NOTE | 2020-08-26 22:32 | NUR ---
CHECKED URINE BAG, STILL NO URINE.
--- NOTE | 2020-08-26 22:42 | NUR ---
PT SLEEPING IN BED, HOB ELEVATED. RR EVEN AND UNLABORED. VSS. NO DISTRESS NOTED. PT PLACED ON FELT CHECKER AND PULSE OXIMETRY. BED LOCKED AND IN LOWEST POSITION, SIDE RAIL UPX2. WILL CONTINUE TO MONITOR.
--- NOTE | 2020-08-27 00:24 | NUR ---
STILL UNABLE TO OBTAIN URINE
--- NOTE | 2020-08-27 00:24 | NUR ---
PT SLEEPING IN BED, HOB ELEVATED. RR EVEN AND UNLABORED. VSS. NO DISTRESS NOTED. PT REPOSITIONED FOR COMFORT. PT PLACED ON HOSIERY MATER AND PULSE OXIMETRY. BED LOCKED AND IN LOWEST POSITION, SIDE RAIL UPX2. WILL CONTINUE TO MONITOR.
--- NOTE | 2020-08-27 01:25 | NUR ---
STILL NO URINE. PT ON MAINTENANCE FLUIDS. WILL CHECK AGAIN AT A LATER TIME.
--- NOTE | 2020-08-27 03:17 | NUR ---
REPOSITIONED PT FOR COMFORT.
--- NOTE | 2020-08-27 03:17 | NUR ---
PT PULLED IV, 20 G ON LT FOREARM PLACED BY KENYON CARRASQUILLO.
--- NOTE | 2020-08-27 03:20 | NUR ---
PT SLEEPING IN BED, HOB ELEVATED. RR EVEN AND UNLABORED. VSS. NO DISTRESS NOTED. PT PLACED ON SOFTWARE CLIENT ARCHITECT AND PULSE OXIMETRY. BED LOCKED AND IN LOWEST POSITION, SIDE RAIL UPX2. WILL CONTINUE TO MONITOR.
--- NOTE | 2020-08-27 04:30 | NUR ---
ATTEMPTED TO STRAIGHT CATH PT, STILL NO URINE.
--- NOTE | 2020-08-27 04:50 | NUR ---
LAB AT BEDSIDE.
--- NOTE | 2020-08-27 05:11 | NUR ---
PT SLEEPING IN BED, HOB ELEVATED. RR EVEN AND UNLABORED. VSS. NO DISTRESS NOTED. PT PLACED ON WASTE DISPOSAL LEAKAGE TESTER AND PULSE OXIMETRY. BED LOCKED AND IN LOWEST POSITION, SIDE RAIL UPX2. WILL CONTINUE TO MONITOR.
[2020-08-27 06:21] LABS: BASOPHILS # (AUTO) 0.1 K/uL (0.00-0.22); BASOPHILS % (AUTO) 0.5 % (0.0-2.0); EOSINOPHILS % (AUTO) 0.2 % (0.0-4.0); HEMATOCRIT 30.9 % (36-52); LYMPHOCYTES # (AUTO) 1.1 K/uL (2.0-11.5); LYMPHOCYTES % (AUTO) 8.6 % (20.5-51.1); MEAN CORPUSCULAR HEMOGLOBIN 27 pg (27-31); MEAN CORPUSCULAR HGB CONC 32 g/dL (33-37); MEAN CORPUSCULAR VOLUME 83.9 fL (80-94); MONOCYTES # (AUTO) 1.3 K/uL (0.8-1.0); MONOCYTES % (AUTO) 10.3 % (1.7-9.3); NEUTROPHILS % (AUTO) 80.4 % (42.2-75.2); PLATELET COUNT (AUTO) 247 K/uL (140-450); RED BLOOD CELL COUNT(AUTO) 3.68 MIL/uL (4.20-6.10); RED CELL DISTRIBUTION WIDTH 16.3 % (11.6-13.7); WHITE BLOOD COUNT (AUTO) 12.4 K/uL (4.8-10.8)
[2020-08-27 06:46] LABS: ANION GAP 11.2 (8-16); CREATININE 1.3 mg/dL (0.6-1.3); POTASSIUM 5.2 mmol/L (3.5-5.1)
--- NOTE | 2020-08-27 07:26 | NUR ---
REPORT RECEIVED FROM AASHISH PRESCOTT, TRANSFER OF CARE AT THIS TIME.
--- NOTE | 2020-08-27 07:37 | NUR ---
RECEIVED REPORT FROM ER NURSE REJI PATIENT WITH CHIEF COMPLAIN OF NAUSEA AND VOMITING , NO KNOWN ALLERGIES, FULL CODE, NPO EXCEPT MEDICATIONS WITH G TUBE, INCONTINENT AND BEDBOUND,ROOM AIR, SKIN INTACT, IV SITES ON THE LEFT FA. ER NURSE GAVE ZOFRAN AND TORADOL. NATHAN NEGATIVE.
--- NOTE | 2020-08-27 07:37 | NUR ---
Patient will be admitted to care of Dr Peralta. Admited to Tele. Will go to room 124B. Belongings list completed. Report to Dr Peralta.
[2020-08-27 08:00] VITALS: BP 125/76
--- NOTE | 2020-08-27 08:08 | NUR ---
PATIENT BROUGHT TO THE UNIT VIA GURNEY, ASSISTED TO BED AND ORIENTED TO ROOM, HOOK IV AND SET THE RATE, CHANGED PATIENT GOWN AND PATIENT TAG FALL RISK. CHECK VITAL SIGNS BP 110/68 OR 75 RR 18 OXYGEN SATURATION 99% AND TEMP. 98. SAFETY MEASURES IN PLACE AND CALL LIGHT WITHIN REACH. WILL CONTINUE TO MONITOR.
[2020-08-27] MEDS: PANTOPRAZOLE 40 MG INJ VIAL IVP SCH (08:38)
--- NOTE | 2020-08-27 08:45 | NUR ---
MEDICATION DUE GIVEN AND MRSA OF THE NARES COLLECTED AND SENT TO LABORATORY.
--- NOTE | 2020-08-27 11:55 | NUR ---
DC PLANN[age] YRS OLD MALE PATIENT WAS ADMITTED FROM [facility] WITH A DX OF INTRACTABLE VOMITING , HEMATEMESIS. PT HAS A HX OF MR CEREBRAL PALSY, MICROCEPHALY AND EPILEPSY. CXR SHOWED LOW LUNG VOLUME. CT ABD/PELVIS SHOWED DISTENDED STOMACH WITH AN AIR FLUID LEVEL , MODERATE UMBILICAL HERNIA CONTAINING FAT. RAPID COVID TEST NEGATING PCR IS PENDING. BLOOD CULTURE PENDING. ADMINISTERED IVF, PROTONIX IV AND CONTINUED HOME MEDS CONSULTED WITH GI DR TORRE FOR GI BLEEDING. DC PLAN TO GO BACK TO [facility] WHEN STABLE CM TO FOLLOW. Addendum: 08/27/20 at 1334 by Annabel Pizarro RN DC PLANNING: RECEIVED A CALL FROM [facility] SPOKE WITH RIAZ CHEN STATED SHE IS THE BOILER ATTENDANT FOR HIM AND PROVIDE CONSENT HER NUMBER [phone] CELL # [phone] CM TO FOLLOW Addendum: 08/30/20 at 1110 by Bruan Lentz CM HILLARY TORREZ: SPOKE TO CARMEN AT [facility] THEY ARE ABLE TO SET UP TRANSPORTATION TODAY BUT SHE SAID IT WILL BE A WHILE BECAUSE SHE HAS TO GET CLEARANCE FROM DEPARTMENT OF HEALTH. THEY ARE REQUESTING A RAPID COVID TEST BEFORE PATIENT RETURNS. KENYON MUÑOZ SPOKE TO DR RAMIREZ SHE SAID IT WAS OKAY FOR PATIENT TO BE TESTED. Addendum: 08/30/20 at 1325 by Bruna Lentz CM HILLARY TORREZ: FOLLOWED UP WITH CARMEN AT [facility] TRANSPORTATION HAS BEEN SET UP WITH [employer] FOR 3:00 PM. CALLED TO NOTIFY KENYON MUÑOZ ABOUT TRANSPORTATION SHE NOTIFIED ME THAT THE PATIENT IS NOT READY AND NEEDS TO HAVE A PROCEDURE DONE. Addendum: 08/30/20 at 1329 by Aquilino Capone SS CHEVY CONTACTED CARMEN WOODY REGARDING PATIENT. ACRMEN PROVIDED PHONE NUMBER FOR IRC WORKER RIAZ MCCULLOUGH [phone]. Addendum: 08/30/20 at 1603 by Aquilino Capone SS SW WAS CONTACTED BY CARMEN WOODY. PATIENT WILL BE DISCHARGED FROM 5PM-6PM. [facility] INFORMED CHARGE NURSE.
--- NOTE | 2020-08-27 13:59 | NUR ---
SOCIAL WORK NOTE: Patient's Orientation Unable To Assess Information Provided By CARMEN WOODY - ADMIN Comments SW WAS UNABLE TO MEET PATIENT AT BEDSIDE DUE TO MEDICAL CONDITION. SW CONTACTED CARMEN WOODY FROM [facility] TO COMPLETE ASSESSMENT. PER CARMEN, PATIENT IS NOT CONSERVED AND HAS NO FAMILY INVOLVED IN HIS CARE. CARMEN PROVIDED [facility] CLASSROOM INSTRUCTOR'S INFORMATION. CARMEN STATED THAT [facility] ACTS PRIMARY HEALTHCARE DECISION MAKER. CARMEN ALSO STATED THAT IF AN URGENT PROCEDURE IS NECESSARY FOR PATIENT, THAT TWO DOCTORS WILL SUFFICE. Can Intake Worker, Realtionship and Phone Number CARMEN WOODY ADMIN [phone] RIAZ PLATT [facility] WORKER Healthcare Power of Hair Rooting Machine Operator No Does Patient Have a POLST No Identifying Problems Unable To Make Decisions Is A Social Work Consult Needed No Mandate Report Filed No Explanation Of Identifying Problems PATIENT IS A 60-YEAR-OLD MALE ADMITTED FOR INTRACTABLE VOMITING. PATIENT HAS PMHX OF SEIZURES, MR, CEREBRAL PALSY, AND EPILEPSY. PATIENT WAS ADMITTED FROM [facility]. Admitted From Residential Care Pre-Admission Level Of Functioning Status Total Care Prior Resources/Services Used In [facility] Wheelchair Dialysis Comments N/A Living Situation House Other Living Situation/Comment PATIENT LIVES IN [facility]. Patient Had Caregiver No Home Support No Caregiver Issues Financial Issues No Known Financial Issue Referral To The Financial Counselor Needed No Factors/Needs No D/C Needs Identified Explanation And Or Other Factors Affecting/Possible DC Needs PER CARMEN, PATIENT NEEDS 2 NEGATIVE TESTS PRIOR TO PATIENT RETURNING TO [facility]. CARMEN STATED THAT [facility] ARRANGES TRANSPORTATION FOR PATIENT WHEN DISCHARGED HOME. Pt/Rep Participated In Discharge Plan Yes Patient/Family Agress With Discharge Plan Yes Discharge Plan Comments TENTATIVE DISCHARGE PLAN IS FOR PATIENT TO RETURN TO [facility]. DC Plan Status Initiated
--- NOTE | 2020-08-27 14:55 | NUR ---
NOVEL TRINH VIRUS SWAB COLLECTED AND SENT TO LABORATORY.
--- NOTE | 2020-08-27 15:00 | NUR ---
TUBE FEEDING STARTED GLUCERNA 1.2 AT 20CC/HR WATERFLUSH AT 100 Q4H. INFUSING WELL AND PATENT,
[2020-08-27] MEDS: DEXT 5% / NACL 0.45% 1,000 ML IV SCH (15:01)
--- NOTE | 2020-08-27 16:24 | NUR ---
PATIENT HAS BEEN SCREENED AND CATEGORIZED HIGH NUTRITION RISK. PATIENT WILL BE SEEN WITHIN 1-2 DAYS OF ADMISSION. 08/27/20-08/28/[address]
[2020-08-27] MEDS: ERYTHROMYCIN ETHYLSUCCINATE SUSP 200 MG/5 ML UDC PO SCH (17:30)
--- NOTE | 2020-08-27 18:00 | NUR ---
ERYTHROMYCIM 2.5 ML GIVEN AT BEDSIDE VIA GTUBE.
--- NOTE | 2020-08-27 18:30 | NUR ---
DR MILNER CHECKED ON THE PATIENT AT THIS TIME AND GAVE UPDATES.
--- NOTE | 2020-08-27 19:00 | NUR ---
PATIENT AMERICAN SIGN LANGUAGE INTERPRETER/NUMBER IN CASE OF EMERGENCY RIAZ CHEN PHONE # [phone]
--- NOTE | 2020-08-27 19:20 | NUR ---
ENDORSED TO NIGHT NURSE FOR CONTINUITY OF CARE. PT IS STABLE
--- NOTE | 2020-08-27 19:25 | NUR ---
RECEIVED PT IN STABLE CONDITION FROM AM NURSE. AWAKE NUT NON VERBAL. ON TELE MONITOR. BEDREST. WITH IVF INFUSING WELL ON THE LT FA G#20.CLEAR AND PATENT. PT HAS MENTAL RETARDATION. GT FEEDING WITH NO RESIDUAL NOTED. INCONTINENT OF URINE/STOOL. ABDOMEN SOFT . FREQ ROUNDS NEEDED. BED ON LOW POSITION. SIDE RAILS UP X2. CALL LIGHT WITHIN REACH. WILL CONTINUE TO MONITOR.
[2020-08-27 20:00] VITALS: BP 120/75
[2020-08-27] MEDS: LACTULOSE 20 GM/30 ML UDC PO SCH (21:04)
--- NOTE | 2020-08-27 21:30 | NUR ---
GT CHECKED AGAIN PLACEMENT. FLUSHED WITH WATER. DUE MED GIVEN THRU THE GT.
--- NOTE | 2020-08-27 23:00 | NUR ---
REPOSITIONED FOR COMFORT. CLEANED AND KEPT DRY.
[2020-08-28] VITALS: BP 130/72
--- NOTE | 2020-08-28 01:00 | NUR ---
MADE ROUNDS. PT AWAKE. BUT NOT TRYING TO GET OUT OF BED. NO DISTRESS NOR ANY DISCOMFORT NOTED.
--- NOTE | 2020-08-28 03:00 | NUR ---
MADE ROUNDS. GT BEEPING. CHECKED ON TUBINGS. FLUSH . NOW RUNNING /INFUSING WELL.
[2020-08-28 04:00] VITALS: BP 132/68
[2020-08-28 05:58] LABS: BASOPHILS # (AUTO) 0.1 K/uL (0.00-0.22); BASOPHILS % (AUTO) 1.2 % (0.0-2.0); EOSINOPHILS # (AUTO) 0.5 K/uL (0-0.4); EOSINOPHILS % (AUTO) 5.1 % (0.0-4.0); HEMATOCRIT 29.9 % (36-52); HEMOGLOBIN 9.5 g/dL (12.0-18.0); LYMPHOCYTES # (AUTO) 1.4 K/uL (2.0-11.5); LYMPHOCYTES % (AUTO) 13.8 % (20.5-51.1); MEAN CORPUSCULAR HEMOGLOBIN 27 pg (27-31); MEAN CORPUSCULAR HGB CONC 32 g/dL (33-37); MEAN CORPUSCULAR VOLUME 84.4 fL (80-94); MONOCYTES # (AUTO) 0.8 K/uL (0.8-1.0); MONOCYTES % (AUTO) 8.3 % (1.7-9.3); NEUTROPHILS # (AUTO) 7.1 K/uL (1.8-7.7); NEUTROPHILS % (AUTO) 71.6 % (42.2-75.2); PLATELET COUNT (AUTO) 268 K/uL (140-450); RED BLOOD CELL COUNT(AUTO) 3.54 MIL/uL (4.20-6.10); RED CELL DISTRIBUTION WIDTH 16.3 % (11.6-13.7); WHITE BLOOD COUNT (AUTO) 9.8 K/uL (4.8-10.8)
--- NOTE | 2020-08-28 06:03 | NUR ---
NEED URINE SPECIMEN FOR UA, UDS AND CULTURE. GOT ORDER TO DO A STRAIGHT CATHETER X1. TRIED TO DO IT BUT UNABLE TO PROCEED FOR THERE IS SOME RESISTANCE WHEN INTRODUCED. PT LOOKED UNCOMFORTABLE. WILL ENDORSE TO AM NURSE TO TRY LATER AGAIN.
[2020-08-28 06:16] LABS: ANION GAP 12.7 (8-16); CARBON DIOXIDE 23.2 mmol/L (21-32); CREATININE 1.2 mg/dL (0.6-1.3); POTASSIUM 3.9 mmol/L (3.5-5.1)
--- NOTE | 2020-08-28 06:30 | NUR ---
NO VOMITING NOTED DURING THE NIGHT.
--- NOTE | 2020-08-28 07:22 | NUR ---
RECEIVED PT NON VERBAL - NID - OS2 SAT WNL . ON TELE MONITOR . ON G TUBE FEDING - TOLERATING . INCONTINENT . SKIN INTACT , SAFETY MEASURES IN PLACE . PLAN OF CARE DISCUSSED BUT POOR UNDERSTANDING DUE TO MENTAL STATUS . WILL CONT. TO MONITOR
--- NOTE | 2020-08-28 07:22 | NUR ---
ENDORSED PT TO KENYON RAMIREZ FOR CONTINUITY OF CARE.
[2020-08-28 08:00] VITALS: BP 110/63
--- NOTE | 2020-08-28 09:00 | NUR ---
MADE ROUNDS . NO S/SX OF ACUTE DISTRESS NOTED . WILL CONT. TO MONITOR .
--- NOTE | 2020-08-28 10:44 | NUR ---
ENDPRSED TO AM SHIFT - PT - STABLE .
--- NOTE | 2020-08-28 10:44 | NUR ---
RECEIVED REPORT FROM KENYON RAMIREZ. PT ALERT AND WILL CONTINUE TO MONITOR TH PATIENT AND UPDATE ON STATUS.
[2020-08-28 12:00] VITALS: BP 116/54
[2020-08-28] MEDS: PANTOPRAZOLE 40 MG INJ VIAL IVP SCH (12:10)
[2020-08-28] MEDS: LACTULOSE 20 GM/30 ML UDC PO SCH ×2 (12:10→21:55)
[2020-08-28] MEDS: ERYTHROMYCIN ETHYLSUCCINATE SUSP 200 MG/5 ML UDC PO SCH ×3 (12:13→16:43)
[2020-08-28] MEDS: CHLORHEXADINE GLUC 2% CLOTH TP SCH (13:00)
[2020-08-28] MEDS: MUPIROCIN CA NASAL 2% 1GM TUBE NS SCH (14:48)
[2020-08-28 16:00] VITALS: BP 118/65
--- NOTE | 2020-08-28 16:32 | NUR ---
08/28/20 RD INITIAL ASSESSMENT COMPLETED PLEASE REFER TO NUTRITION ASSESSMENT UNDER CARE ACTIVITY FOR ESTIMATED NUTRITIONAL NEEDS. 1. WHEN MEDICALLY STABLE CONSIDER JEVITY 1.2 @ 40 ML/HR. START AT 20 ML/HR AND ADVANCE BY 20 ML/HR Q12HR -THIS WILL PROVIDE 1152 KCAL AND 53 GM OF PROTEIN/DAY. THIS MEETS 100% OF ESTIMATED KCAL AND PROTEIN NEEDS. 2. CONSIDER FREE WATER FLUSH OF [address] TO FOLLOW-UP 2-3 DAYS, HIGH RISK JAYSON GRANADOS RD
[2020-08-28] MEDS: DEXT 5% / NACL 0.45% 1,000 ML IV SCH (16:41)
[2020-08-28 20:00] VITALS: BP 145/96
--- NOTE | 2020-08-28 21:03 | NUR ---
PHARMACIST NOTIFICATION TO CLARIFY REGLAN ORDER WITH . PHARMACIST VERBALIZES UNDERSTANDING. JOCELIN KENDRICK RN Addendum: 08/28/20 at 2105 by Agency Jacob PRESCOTT RN DISREGARD NOTE INCORRECT PATIENT
[2020-08-29] VITALS: BP 129/59
[2020-08-29 04:00] VITALS: BP 146/78
--- NOTE | 2020-08-29 04:22 | NUR ---
STRAIGHT CATHETERIZATION FOR URINE WHICH WAS SENT TO LABORATORY FOR FURTHER TESTING. JOCELIN KENDRICK RN
[2020-08-29 06:01] LABS: BASOPHILS % (AUTO) 0.3 % (0.0-2.0); EOSINOPHILS # (AUTO) 0.5 K/uL (0-0.4); EOSINOPHILS % (AUTO) 6.2 % (0.0-4.0); HEMATOCRIT 30.1 % (36-52); HEMOGLOBIN 9.9 g/dL (12.0-18.0); LYMPHOCYTES # (AUTO) 0.8 K/uL (2.0-11.5); LYMPHOCYTES % (AUTO) 9.5 % (20.5-51.1); MEAN CORPUSCULAR HEMOGLOBIN 27 pg (27-31); MEAN CORPUSCULAR HGB CONC 33 g/dL (33-37); MONOCYTES # (AUTO) 0.8 K/uL (0.8-1.0); MONOCYTES % (AUTO) 8.5 % (1.7-9.3); NEUTROPHILS # (AUTO) 6.7 K/uL (1.8-7.7); NEUTROPHILS % (AUTO) 75.5 % (42.2-75.2); PLATELET COUNT (AUTO) 265 K/uL (140-450); RED BLOOD CELL COUNT(AUTO) 3.63 MIL/uL (4.20-6.10); RED CELL DISTRIBUTION WIDTH 16.1 % (11.6-13.7); WHITE BLOOD COUNT (AUTO) 8.8 K/uL (4.8-10.8)
[2020-08-29 06:37] LABS: APPEARANCE,URINE HAZY (CLEAR); BILIRUBIN,URINE NEGATIVE (NEGATIVE); BLOOD, URINE NEGATIVE (NEGATIVE); COLOR,URINE YELLOW (YELLOW); LEUKOCYTE ESTERASE ,URINE 1+ (NEGATIVE); NITRITE, URINE NEGATIVE (NEGATIVE); PH,URINE 6.5 (5.0-9.0); UGLUCOSE NEGATIVE (NEGATIVE)
[2020-08-29 06:50] LABS: RBC,URINE 0-5 /HPF (0-5)
[2020-08-29] MEDS: DEXT 5% / NACL 0.45% 1,000 ML IV SCH (06:50)
[2020-08-29 06:54] LABS: BARBITURATE, URINE NEGATIVE ng/ml (NEG <=200); BENZODIAZEPINE, URINE NEGATIVE ng/mL (NEG <=200); CANNABINOID, URINE NEGATIVE ng/mL (NEG <=50); COCAINE, URINE NEGATIVE ng/mL (NEG <=300); OPIATE, URINE NEGATIVE ng/mL (NEG <=2000); PHENCYCLIDINE SCREEN,URINE NEGATIVE ng/mL (NEG <=25)
[2020-08-29 07:03] LABS: ANION GAP 12.7 (8-16); CARBON DIOXIDE 25.6 mmol/L (21-32); CREATININE 1.3 mg/dL (0.6-1.3); POTASSIUM 3.3 mmol/L (3.5-5.1)
--- NOTE | 2020-08-29 07:26 | NUR ---
HANDOFF WITH KENYON DEVRIES. JOCELIN KENDRICK RN
--- NOTE | 2020-08-29 07:27 | NUR ---
RECEIVED ENDORSEMENT FROM BOOTMAKER, AWAKE, ALERT, INCOHERENT SECONDARY TO DISEASE, MENTALLY DELAYED. WITH ONGOING IV FLUID WITH D5 0.45%NS AT 50ML/HOUR INFUSING AT LEFT FOREARM, G20 IV CANNULA NOTED. WITH ONGOING TUBE FEEDING GLUCERNA 1.2 20ML/HOUR + WATER 100ML/4HOUR VIA G-TUBE. SAFETY MEASURES IN PLACE AND CONTINUE MONITOR.
[2020-08-29 08:00] VITALS: BP 117/63
[2020-08-29] MEDS: LACTULOSE 20 GM/30 ML UDC PO SCH ×2 (09:12→12:25)
[2020-08-29] MEDS: PANTOPRAZOLE 40 MG INJ VIAL IVP SCH (09:12)
[2020-08-29] MEDS: ERYTHROMYCIN ETHYLSUCCINATE SUSP 200 MG/5 ML UDC PO SCH ×3 (09:15→18:04)
--- NOTE | 2020-08-29 09:28 | NUR ---
G-TUBE CHECKED, NO RESIDUAL NOTED. DUE MEDICATION GIVEN AND KEPT COMFORTABLE TO BED
--- NOTE | 2020-08-29 10:57 | NUR ---
PT. ADMITTED WITH LOW ION SCALE AT RISK, CONTINUE TO FOLLOW PRESSURE ULCER PREVENTION INTERVENTIONS. -TURN AND REPOSITION PATIENT Q 2H -ASSESS AND MONITOR SKIN CONDITION DURING POSITION CHANGE -OFFLOAD BILATERAL HEELS BY PLACING PILLOWS UNDER CALVES AT ALL TIMES, UNLESS OTHERWISE CONTRAINDICATED -PRESSURE REDISTRIBUTION BY PLACING PILLOWS AND OFFLOADING SACRALCOCCYX -KEEP SKIN CLEAN AND DRY AT ALL TIMES.
[2020-08-29 12:00] VITALS: BP 112/57
--- NOTE | 2020-08-29 12:10 | NUR ---
VITAL SIGNS TAKEN AND RECORDED, STABLE
[2020-08-29] MEDS: MUPIROCIN CA NASAL 2% 1GM TUBE NS SCH (12:54)
[2020-08-29] MEDS: CHLORHEXADINE GLUC 2% CLOTH TP SCH (12:54)
[2020-08-29] MEDS ORDERED: POTASSIUM CHLORIDE 20% 40 MEQ/15 ML UDC GT SCH (13:00)
--- NOTE | 2020-08-29 13:11 | NUR ---
DUE MEDICATION GIVEN VIA G-TUBE AND MUPIROCIN OINTMENT APPLIED AT BOTH NARES.
--- NOTE | 2020-08-29 13:30 | NUR ---
IV CANNULA SITE AT LEFT ARM SWELLING NOTED, ABOVE IV FLUID STOP. IV CANNULA REMOVED AND DRESSING APPLIED.
--- NOTE | 2020-08-29 14:10 | NUR ---
TRIED TO INSERT IV CANNULA FOR 2TIMES BUT FAILED, PATIENT IS HARD STICK VEIN
--- NOTE | 2020-08-29 15:10 | NUR ---
ER CONTACTED AND ASKED IF THEY CAN TRY TO INSERT AN IV CANNULA.
[2020-08-29 16:00] VITALS: BP 102/57
--- NOTE | 2020-08-29 17:55 | NUR ---
DR. NORIEGA INFORMED THAT PATIENT IS HARD STICK VEIN, UNABLE TO INSERT IV LINE AT BOTH UPPER LIMB. ORDERED CAN USE LOWER LIMB FOR IV LINE INSERTION.
--- NOTE | 2020-08-29 18:02 | NUR ---
IV CANNULA G24 INSERTED AT RT DORSAL FOOT, ASYMPTOMATIC AND PATENT.
--- NOTE | 2020-08-29 19:40 | NUR ---
ENDORSED TO LEASE ADMINISTRATOR IN STABLE CONDITION FOR CONTINUITY OF CARE
[2020-08-29] MEDS ORDERED: PANTOPRAZOLE 40 MG INJ VIAL IVP SCH (21:00)
[2020-08-30] MEDS ORDERED: LANSOPRAZOLE 30 MG CAPDR PO SCH ×2 (06:30→14:00)
--- NOTE | 2020-08-30 07:35 | NUR ---
RECEIVED ENDORSEMENT FROM BILINGUAL CUSTOMER SERVICE SPECIALIST, AWAKE, ALERT, INCOHERENT SECONDARY TO DISEASE, MENTALLY DELAYED. WITH ONGOING IV FLUID WITH D5 0.45%NS AT 50ML/HOUR INFUSING AT RT FOOT, G24 IV CANNULA NOTED. WITH ONGOING TUBE FEEDING GLUCERNA 1.2 40ML/HOUR + WATER 100ML/4HOUR VIA G-TUBE. SAFETY MEASURES IN PLACE AND CONTINUE MONITOR.
[2020-08-30 08:00] VITALS: BP 120/66
[2020-08-30 08:45] LABS: WHITE BLOOD COUNT (AUTO) 8.2 K/uL (4.8-10.8)
[2020-08-30 08:46] LABS: HEMATOCRIT 32.5 % (36-52); HEMOGLOBIN 10.6 g/dL (12.0-18.0); MEAN CORPUSCULAR HEMOGLOBIN 27 pg (27-31); MEAN CORPUSCULAR HGB CONC 33 g/dL (33-37); MEAN CORPUSCULAR VOLUME 82.2 fL (80-94); PLATELET COUNT (AUTO) 264 K/uL (140-450); RED BLOOD CELL COUNT(AUTO) 3.95 MIL/uL (4.20-6.10); RED CELL DISTRIBUTION WIDTH 16.1 % (11.6-13.7)
[2020-08-30 08:47] LABS: BASOPHILS % (AUTO) 0.3 % (0.0-2.0); EOSINOPHILS # (AUTO) 0.5 K/uL (0-0.4); EOSINOPHILS % (AUTO) 5.6 % (0.0-4.0); LYMPHOCYTES # (AUTO) 0.8 K/uL (2.0-11.5); LYMPHOCYTES % (AUTO) 9.5 % (20.5-51.1); MONOCYTES # (AUTO) 0.7 K/uL (0.8-1.0); MONOCYTES % (AUTO) 8.9 % (1.7-9.3); NEUTROPHILS # (AUTO) 6.2 K/uL (1.8-7.7); NEUTROPHILS % (AUTO) 75.7 % (42.2-75.2)
--- NOTE | 2020-08-30 09:10 | NUR ---
FULLY AWAKE, NOT IN DISTRESS NOTED
--- NOTE | 2020-08-30 10:05 | NUR ---
RESIDUAL CHECKED- UNABLE TO ASPIRATE GASTRIC CONTENT WITH RESISTANT, CHARGE NURSE MADE AWARE
[2020-08-30] MEDS: LACTULOSE 20 GM/30 ML UDC PO SCH (10:32)
[2020-08-30] MEDS: ERYTHROMYCIN ETHYLSUCCINATE SUSP 200 MG/5 ML UDC PO SCH ×2 (10:32→13:00)
[2020-08-30 10:56] LABS: PHOSPHORUS 4.1 mg/dL (2.5-4.9)
[2020-08-30 10:57] LABS: ANION GAP 12.6 (8-16); CREATININE 1.2 mg/dL (0.6-1.3); POTASSIUM 4.6 mmol/L (3.5-5.1)
--- NOTE | 2020-08-30 11:40 | NUR ---
COVID NATHAN RAPID TEST DONE AND SENT TO LAB ORDERED
[2020-08-30 11:44] VITALS: BP 120/66
--- NOTE | 2020-08-30 12:03 | NUR ---
YAJAIRA RN AHMET CAME AND CHECKED THE G-TUBE, TRIED TO FLUSH BUT STILL THERE IS RESISTANCE NOTED. ACCORDING TO HER SHE WILL INFORMED YAJAIRA MARSHALL
[2020-08-30] MEDS: CHLORHEXADINE GLUC 2% CLOTH TP SCH (13:00)
[2020-08-30] MEDS: MUPIROCIN CA NASAL 2% 1GM TUBE NS SCH (13:00)
--- NOTE | 2020-08-30 13:15 | NUR ---
SEEN AND EXAMINED BY DR. TORRE, GI. ACCORDING TO HIM THE G-TUBE IS BLOCKED AND NEEDS EMERGENCY EGD. DR CLAIRE, ATTENDING PHYSICIAN CONTACTED BY DR. TORRE. TO OBTAIN AND SIGN THE CONSENT.
--- NOTE | 2020-08-30 13:25 | NUR ---
TO OR PER BED ACCOMPANIED BY OR NURSE IN STABLE CONDITION FOR EGD
[2020-08-30] MEDS ORDERED: diphenhydrAMINE 50 MG/ML VIAL ONE (13:33)
[2020-08-30] MEDS ORDERED: fentaNYL citrate 0.05 MG/ML VIAL ONE (13:33)
[2020-08-30] MEDS ORDERED: MIDAZOLAM 5 MG/5 ML VIAL ONE ×2 (13:33→13:34)
[2020-08-30] MEDS ORDERED: MIDAZOLAM 2 MG/2 ML VIAL IVP ONE (14:15)
[2020-08-30] MEDS ORDERED: fentaNYL citrate 0.05 MG/ML VIAL IVP ONE (14:15)
--- NOTE | 2020-08-30 14:45 | NUR ---
BACK TO ROOM , ASLEEP AND STILL DROWSY NOTED. VITAL SIGNS STABLE, NON LABORED BREATHING NOTED. PER OR NURSE LEO, G-TUBE READY TO USE. FEEDING RESUMED ORDERED.
--- NOTE | 2020-08-30 15:10 | NUR ---
MADE AWARE THAT THE PT CAME BACK FROM EGD AND WITH NEW G-TUBE, ASKED IF THE PATIENT CAN DISCHARGE TODAY, AWAITING REPLY
--- NOTE | 2020-08-30 15:31 | NUR ---
LANSOPRASOLE NON ADMINISTER, PATIENT RECEIVED AT 0638H TODAY AND NEXT DOSE WILL DUE AT 2100, PHARMACY CONFIRMED
--- NOTE | 2020-08-30 17:10 | NUR ---
[facility] PERSONNEL CALLED AND REPORT GIVE, MADE AWARE THAT PATIENT WILL EAR NOSE THROAT SURGEON BEFORE 6PM. PLAN OF CARE DISCUSSED AND VERBALIZED UNDERSTANDING.
--- NOTE | 2020-08-30 17:45 | NUR ---
TRANSPORT PERSONNEL CAME TO PRIVATE EYE THE PATIENT, DISCHARGED IN STABLE CONDITION, BREATHING SPONTANEOUSLY AT ROOM AIR. IV CANNULA REMOVED AND DRESSING APPLIED, NO BLEEDING NOTED. DISCHARGE PACKET INSTRUCTION GIVEN.
[2020-08-30] MEDS ORDERED: FERROUS SULFATE 300 MG/5 ML UDC GT SCH (21:00)
== END 2020-08-30 17:45 | DRG 871 ==
LOC: MED 18:21 → MTU 21:07
PROVIDERS: ADMIT Family Medicine; ATTEND Family Medicine
PROC: 0D20XUZ Change Feeding Device in Upper Intestinal Tract, External Approach (ICD-10-PCS; principal; 2020-08-30 13:30)
DX: A41.9 Sepsis, unspecified organism (principal); N17.0 Acute kidney failure with tubular necrosis; K92.0 Hematemesis; F72 Severe intellectual disabilities; K22.10 Ulcer of esophagus without bleeding; N39.0 Urinary tract infection, site not specified; E44.1 Mild protein-calorie malnutrition; K94.29 Other complications of gastrostomy; E87.5 Hyperkalemia; G83.9 Paralytic syndrome, unspecified; E83.41 Hypermagnesemia; Z20.828 Contact with and (suspected) exposure to other viral communicable diseases; G40.909 Epilepsy, unspecified, not intractable, without status epilepticus; E86.0 Dehydration; E78.5 Hyperlipidemia, unspecified; D64.9 Anemia, unspecified; D72.829 Elevated white blood cell count, unspecified; G80.9 Cerebral palsy, unspecified; K44.9 Diaphragmatic hernia without obstruction or gangrene; K21.9 Gastro-esophageal reflux disease without esophagitis; Y83.3 Surgical operation with formation of external stoma as the cause of abnormal reaction of the patient, or of later complication, without mention of misadventure at the time of the procedure; Q02 Microcephaly; Z79.899 Other long term (current) drug therapy
CPT/HCPCS: 36415; 71045; 80048; 80053; 80305; 81001; 82150; 83036; 83605; 83690; 83735; 83880; 84100; 84436; 84439; 84443; 84479; 84484; 85025; 85610; 85730; 87040; 87081; 87086; 93005; 96361; 96374; 96375; 97161-GP; 99285; C1758; C9113; J0696; J1200; J1885; J2001; J2250; J2405; J3010; J3480; J7030; J7060; U0003

== ENCOUNTER 2020-10-17 16:59 | Emergency (ER) | payer OTHER, MEDICAID, SELFPAY ==
[~2020-10-17] VITALS: Ht 147.3 cm; Wt 40.8 kg
[~2020-10-17 16:59] MED LIST changes: -LEVO750T2 PO
[2020-10-17 17:16] VITALS: BP 50/23
[2020-10-17] MEDS ORDERED: LACTATED RINGERS 1,000 ML IV ONE (17:30)
--- NOTE | 2020-10-17 17:30 | NUR ---
PATIENT BIBA ALS TO ER BED 12
[2020-10-17 18:34] VITALS: BP 52/27
[2020-10-17] MEDS ORDERED: CODE BLUE PARTICIPANT 1 EA MISC MC ONE (18:56)
--- NOTE | 2020-10-17 19:01 | NUR ---
CARMEN WOODY (LEASE OPERATOR) - [phone] CALL WITH AN UPDATE
--- NOTE | 2020-10-17 19:03 | NUR ---
spoke with Enoc Camarillo from [facility]. pt is ineligible for organ donation. authorization ID number: [id number]
--- NOTE | 2020-10-17 19:12 | NUR ---
called Accounts Administrator's Office. spoke with Ivan, Senior Tax Specialist. states Accounts Administrator will call for report. No ETA given.
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
[2020-10-17] MEDS ORDERED: AZITHROMYCIN 500 MG in DEXTROSE 5% 250 ML IV SCH (22:00)
--- NOTE | 2020-10-18 01:30 | NUR ---
s/w Cristina Almanzar Deputy Controller. stated body is released and not a case. case # [id number]
--- NOTE | 2020-10-18 01:45 | NUR ---
s/w Heather Roth, coordinator and real estate administrator of [facility], regarding pt placement in mortuary homes. stated choice of mortuary is [facility], [address] [place], [place] [id number]. stated that already arranged services and that the person that set up services with [facility] is named Jessica Snyder.
--- NOTE | 2020-10-18 01:51 | NUR ---
s/w Marcell, from [facility] regarding pt arrangements. stated that the staff will be giving a call back to clarify when and what time the will be picked up .
== END 2020-10-17 18:56 ==
LOC: MED 16:59
DX: I46.9 Cardiac arrest, cause unspecified (principal); J96.91 Respiratory failure, unspecified with hypoxia; R73.9 Hyperglycemia, unspecified; E87.3 Alkalosis; Z79.899 Other long term (current) drug therapy
CPT/HCPCS: 31500; 71045; 92950; 93005; 99291